=== PATIENT | male | born 1990 | race African-American/Black ===

== ENCOUNTER → 2024-02-11 | Outpatient (CLI) | payer SELFPAY ==
[~2024-02-11] MED LIST: ACET65TA; ALDA50TA2 PO; AMLO10TAB PO; BACT800T OR; BYSTOLIC PO; CARD120C3 PO; CHLO125TA PO; CHLORTHALIDONE PO; CLARITIN D; CLON-412; COZA100T; DOXY75CA3 PO; HYDR25TA6; INSULANT SC; KOMBIGLYZE; KOMBIGLYZE XR PO; LASI80TA; LEVA750T; LIPI20TA PO; LISI2.5T9 PO; LOPR100T; METF10004 PO; MINOXIDIL; MUCINEX DM; SPIRPOW PO; TEKTURNA PO; TYLE325T5 PO; apresoline PO
== END ==
LOC: M OUTALCOH 08:13
PROVIDERS: ATTEND Psychiatry & Neurology Psychiatry
DX: Z03.89 Encounter for observation for other suspected diseases and conditions ruled out (principal)

== ENCOUNTER 2024-02-18 13:36 | Outpatient (RCR) | payer SELFPAY | END 2024-02-23 | LOC: M OUTALCOH 13:36 | PROVIDERS: ATTEND Psychiatry & Neurology Psychiatry | DX: Z03.89 Encounter for observation for other suspected diseases and conditions ruled out (principal) ==

== ENCOUNTER 2024-05-04 13:08 | Emergency (ER) | payer SELFPAY ==
[~2024-05-04] VITALS: Ht 160 cm; Wt 130.1 kg
[2024-05-04] MEDS ORDERED: HYDR25OIN TOP (16:39)
[2024-05-04] MEDS ORDERED: NYST100085 TOP (16:39)
[2024-05-04 17:08] VITALS: BP 192/88; TEMP 98.2; O2SAT 97
[2024-05-04 18:06] LABS: Trichomonas vaginalis (AMP) NOT DETECTED (NEGATIVE)
[2024-05-04 18:29] LABS: GC DNA AMPLIFICATION NEGATIVE (NEGATIVE)
== END 2024-05-04 17:12 | disposition home or self-care (01) ==
LOC: M ED 13:08
DX: N47.1 Phimosis (principal); N48.29 Other inflammatory disorders of penis; I10 Essential (primary) hypertension; Z79.899 Other long term (current) drug therapy

== ENCOUNTER 2024-05-09 16:59 | Emergency (ER) | payer SELFPAY ==
[~2024-05-09] VITALS: Ht 172.7 cm; Wt 128.1 kg
[~2024-05-09 16:59] MED LIST changes: +HYDR25OIN TOP; +NYST100085 TOP
[2024-05-09 21:27] VITALS: TEMP 97; O2SAT 98
[2024-05-09] MEDS ORDERED: VALA1TAB5 PO (22:05)
[2024-05-09 22:12] VITALS: BP 162/94
[2024-05-09] MEDS: valACYclovir HCL 500 MG TAB PO ONE (22:18)
== END 2024-05-09 22:35 | disposition home or self-care (01) ==
LOC: M ED 16:59
DX: N47.1 Phimosis (principal); B00.9 Herpesviral infection, unspecified; E11.9 Type 2 diabetes mellitus without complications; I10 Essential (primary) hypertension; Z86.79 Personal history of other diseases of the circulatory system